=== PATIENT | male | born 1965 | race Caucasian/White ===

== ENCOUNTER 2021-12-02 10:26 | Emergency (ER) | payer BC, MEDICARE ==
[2021-12-02 10:49] VITALS: PULSE 64
[2021-12-02 11:34] LABS: ESTIMATED GFR > 60 (>60); TROPONIN I HIGH SENSITIVITY 6.5 pg/mL (<=60.3)
[2021-12-02 11:53] LABS: CORONAVIRUS COVID-19 NAA NEGATIVE (NEGATIVE)
[2021-12-02 13:16] VITALS: BP 168/94
== END 2021-12-02 13:19 | disposition home or self-care (01) ==
LOC: JP.ED 10:26
DX: R60.0 Localized edema (principal); M79.605 Pain in left leg; Z20.822 Contact with and (suspected) exposure to COVID-19; Z88.2 Allergy status to sulfonamides
CPT/HCPCS: 0241U; 36415; 80053; 84484; 85025; 85379; 93971; 99283; 99285